=== PATIENT | male | born 1950 | race Caucasian/White ===

== ENCOUNTER 2017-01-25 22:26 | Emergency (ER) | payer MEDICARE, OTHER ==
[2017-01-25] MEDS ORDERED: GLUCAGON,HUMAN RECOMBINANT 1 MG VIAL IV ONE (22:48)
--- OUTSIDE RECORDS SUMMARY | 2017-01-25 22:51 | XMS REPORT | Continuity of Care Document ---
:1950 Author Organization [facility] [place] [address] Care Team Providers Name Role Phone Unavailable Primary Care Provider Unavailable Source Comments This disclosure is being made pursuant to the [employer] program and maynot contain all information available regarding this patient.[facility] Active Allergies and Adverse Reactions Not on File Current Medications Be aware that medications may not be up to date as of this document. Alwaysverify current medications with the patient. Not on file Active Problems Not on file Social History Tobacco Use Types Packs/Day Years Used Date Never Assessed Plan of Care Health Maintenance Due Date Last Done Comments Retired-Pertussis Vaccine Adult 1967 Retired-Tetanus Vaccine Adult 1969 Colonoscopy 1998 Well Adult Visit 1998 Zoster Vaccine 60+ 2008 Retired-Pneumococcal 23 Vaccine-65+ yo 2013 Retired-INFLUENZA VACCINE 07/18/2015 Results from Last 3 Months Not on file
--- OUTSIDE RECORDS SUMMARY | 2017-01-25 22:51 | XMS REPORT | Continuity of Care Document ---
:1950 Author Organization [facility] ([facility]) Address [place] [address] Phone [phone] Care Team Providers Name Role Phone Unavailable Primary Care Provider Unavailable Source Comments This disclosure is being made pursuant to the Care Everywhere program, applicable federal and state laws, and may not contain all informaitonavailable regarding this patient.[facility] ([facility]) Active Allergies and Adverse Reactions Not on File Current Medications Not on file Active Problems Not on file Immunizations Name Dates Previously Given Next Due Td, adult unspecified 12/24/1995 Social History Tobacco Use Types Packs/Day Years Used Date Never Assessed Plan of Care Health Maintenance Due Date Last Done Comments HCV Screening 1950 Hepatitis B Vaccine (1 of 3 - Primary Series) 1950 Tdap Vaccine 1959 Lipid Disorder Screening 1966 Colonoscopy 1998 Prostate Cancer Screening 1998 Td Vaccine 12/24/2005 12/24/1995 Zoster Vaccine 2008 Pneumococcal Vaccine (1 of 2 - PCV13) 2013 Influenza Vaccine: Seasonal (#1) 06/17/2016 Results from Last 3 Months Not on file
[2017-01-25] MEDS ORDERED: GLUCAGON,HUMAN RECOMBINANT 1 MG VIAL ONE (22:54)
--- NOTE | 2017-01-25 23:22 | ERNOTE ---
Medical Problem HPI - General Chief Complaint: General Assessment Time Seen by Provider: 01/25/17 22:45 Source: patient, family - Immun/Allergies/Home Medications Immunizations: IMMUNIZATION HX Immunizations Up to Date Yes History of Influenza Vaccine Yes Hx Pneumococcal Vaccination Yes Allergies/Adverse Reactions: Allergies No Known Allergies Allergy (Verified 01/25/17 22:37) Home Medications: HOME MEDICATIONS NK [No Home Medication] 06/17/16 [Last Taken Unknown] - History of Present History Narrative: was eating pot roast when a piece of meat got stuck in his esophagus. this has happened to pt before. He is unable to swallow saliva, this happened two hours ago. Review of Systems - Review of Systems Constitutional: Present: no symptoms reported EYE: Present: no symptoms reported ENT: Present: See HPI Respiratory: Present: no symptoms reported Cardiology: Present: no symptoms reported Gastrointestinal/Abdominal: Present: See HPI - Patient's Past Medical History Patient History - Medical: No pertinent hx Patient History - Cardiac/Respiratory: Asthma Patient History - Cancer: No Hx of Cancer Patient History - Surgical Procedures: Other Patient History - Other: None - Social History Living Situations: home Abuse History: No History of abuse Psych History: No pertinent hx Alcohol Use: none Drug Use: none - Immunizations Immunizations Up to Date: Yes Hx Pneumococcal Vaccination: Yes History of Influenza Vaccine: Yes Physical Exam - Physical Exam General Appearance: Present: wd/wn, alert, no apparent distress Ears, Nose, Throat: Present: normal ENT inspection Neck: Present: normal inspection Respiratory: Present: no respiratory distress, normal breath sounds, no accessory muscle use, chest nontender, lungs clear Cardiovascular/Chest: Present: regular rate, rhythm, no murmur, normal peripheral pulses Gastrointestinal/Abdominal: Present: normal bowel sounds ED Progress - Vital Signs Patient's Vital Signs:: I have reviewed the patient's vital signs. Vital Signs: Vital Signs 01/25/17 22:35 Temperature 37.2 C Pulse Rate 78 Respiratory 16 Rate Blood Pressure 164/83 O2 Sat by Pulse 96 Oximetry - X-Ray X-Ray #1 X-Ray: chest Interpretation: Interp. by me - Progress/Reassessment Chief Complaint: General Assessment Plan - Plan Plan: trial of passage and Glucagon failed. I am being informed that endoscopic services are NOT available at this facility. I consulted [facility] and Dr. Hall in the ED graciously accepted this patient. Patient's family is adamant that they want to sign out AMA and drive patient to [facility] instead of Ambulance transfer. Pt is stable for transport by private vehicle. Departure - Departure Clinical Impression: Foreign body of esophagus Disposition: Against medical advice Condition: Fair
[2017-01-25 23:46] VITALS: BP 127/79
== END 2017-01-25 23:43 | disposition short-term general hospital (02) ==
LOC: ER 22:26
DX: T18.108A Unspecified foreign body in esophagus causing other injury, initial encounter (principal); Z53.21 Procedure and treatment not carried out due to patient leaving prior to being seen by health care provider